=== PATIENT | male | born 1975 | race Caucasian/White ===

== ENCOUNTER → 2019-02-25 | Day surgery (SDC) | payer OTHER ==
[2019-02-21 11:33] LABS: INR 0.95; PROTHROMBIN TIME 13.2 seconds (11.9-14.5)
[2019-02-21 11:34] LABS: PARTIAL THROMBOPLASTIN TIME 39.8 seconds (23.8-35.5)
[~2019-02-25] MED LIST: ADDERALL 20 MG20 MG PO; BUPIVACAINE 0.25% 30ML SDV INJ ONE; CEFAZOLIN SOD 1 GM/NS 50ML 100 ML IV ONE; DEXAMETHASONE SOD PHOS INJ 4 MG/ML VIAL ONE; FENTANYL CITRATE/PF 100MCG/2 ML INJ ONE; GLYCOPYRROLATE INJ 1MG/ 5 ML SYR ONE; HYDROMORPHONE 2MG/ML 2 MG/ML ML ONE; LIDOCAINE HCL 2% LOCAL INJ 5 ML SDV VIAL INJ ONE; MAGNESIUM PO; MIDAZOLAM HCL 2 MG/2 ML VIAL ONE; NEOSTIGMINE 5 MG/5ML SYR ONE; NEXIUM40 MG PO; ONDANSETRON HCL INJ 2MG/ML 2ML 2 MG/ML VIAL ONE; PROPOFOL IV EMULSION 10 MG/ML 20 ML VIAL ONE; REVATIO20 MG PO; ROCURONIUM BROMIDE 10 MG/ML 5ML VIAL ONE; SERTRALINE HCL100 MG PO; SEVOFLURANE INHAL SOLN 250 ML PEN BTL ONE; SODIUM CHLORIDE 0.9% INJ 10 ML VIAL ONE; TRAMADOL HCL 50 MG TAB ONE; TRAZODONE HCL50 MG PO; VYVANSE70 MG PO
--- OUTSIDE RECORDS SUMMARY | 2019-02-25 06:54 | XMS REPORT ---
Author Author [facility] Address Unknown Phone Unavailable Care Team Providers Care Lead Warehouse Associate Name Role Phone Unavailable Unavailable Problems This patient has no known problems. Allergies, Adverse Reactions, Alerts This patient has no known allergies or adverse reactions. Medications This patient has no known medications.
[2019-02-25 11:30] VITALS: BP 115/77
--- NOTE | 2019-02-25 16:55 | Operative Report ---
DATE OF PROCEDURE: 02/25/2019 SURGEON: Danielito Valdez MD PREOPERATIVE DIAGNOSES: 1. Elevated liver function tests. 2. Chronic cholecystitis. 3. History of multiple biliary gallbladder attacks. POSTOPERATIVE DIAGNOSES: 1. Elevated liver function tests. 2. Chronic cholecystitis. 3. History of multiple biliary gallbladder attacks. PREOPERATIVE INDICATION: 1. Treat disease, complications related to biliary disease. 2. Histologic confirmation of liver disease needed. PROCEDURES: 1. Laparoscopic liver biopsy (CPT 69104). 2. Laparoscopic cholecystectomy (CPT 34399-87). 3. Application of human connective tissue allograft to augment damaged tissues (CPT 23563, product code [id number]). ANESTHESIA: General. QUALITY CONTROL SUPERVISOR: Alberto See, certified surgical tech/first assistant (needed due to complexity of case). FLUIDS: 800 mL crystalloid. ESTIMATED BLOOD LOSS: 40 mL. DRAINS: None. COMPLICATIONS: None. SPECIMENS: 1. Wedge biopsy of liver, right lobe. 2. Gallbladder grafts, human connective tissue allograft injected subcutaneously. FINDINGS: 1. Gallbladder wall thickening with pericholecystic inflammation and adhesions. 2. Friable liver. PROCEDURE IN DETAIL: The patient was brought to the operating room and was intubated under general endotracheal anesthesia. He was sterilely prepped and draped in the usual fashion. A preprocedure pause was performed identifying the patient, use of perioperative antibiotics, intended procedure, and staff surgeon. Access was gained to the peritoneal cavity via a 5 mm left subcostal incision using a Veress needle. The abdomen was insufflated and three additional trocars were placed in standard positions. The gallbladder was grasped at the fundus and retracted cephalad to the right of liver. There were multiple adhesions from the omentum to the gallbladder which were carefully lysed. The liver was very friable. The gallbladder was thick walled and inflamed. I then dissected out the cystic duct and cystic artery and clipped them twice and twice on the stay side, once on the specimen side and divided with scissors. The gallbladder was then excised off the gallbladder fossa using the L-hook cautery. I then did a wedge biopsy of the right lobe of the liver using the Harmonic Scalpel, getting a good sample. I then removed the specimens, both the liver biopsy and the gallbladder through the periumbilical port site using an EndoCatch bag. The port site was closed with 0-Vicryl suture using a Esvin Milligan technique. I then verified hemostasis, desufflated the abdomen, and removed the trocars. We then closed incision sites with 4-0 Monocryl suture in a subcuticular fashion. Dermabond dressings were applied. I did use 2 mL of Natty biologic human connective tissue allograft to augment damaged tissue growth over the incision sites. 0.25% bupivacaine was used both to the preperitoneal incision sites. The patient tolerated the procedure well. Type of wound was type 2, clean and contaminated. Danielito Valdez MD Ashley/CBL /[id number]
== END | disposition home or self-care (01) ==
LOC: OR 06:52
PROVIDERS: ATTEND Surgery
DX: F32.9 Major depressive disorder, single episode, unspecified (principal); K80.10 Calculus of gallbladder with chronic cholecystitis without obstruction; F17.210 Nicotine dependence, cigarettes, uncomplicated; K21.9 Gastro-esophageal reflux disease without esophagitis; K76.0 Fatty (change of) liver, not elsewhere classified; G25.81 Restless legs syndrome; J30.2 Other seasonal allergic rhinitis; Z01.810 Encounter for preprocedural cardiovascular examination; Z88.6 Allergy status to analgesic agent; Z88.5 Allergy status to narcotic agent; K82.8 Other specified diseases of gallbladder; B17.9 Acute viral hepatitis, unspecified; E66.01 Morbid (severe) obesity due to excess calories; Z68.41 Body mass index [BMI] 40.0-44.9, adult
CPT/HCPCS: 36415; 47379; 47562; 85610; 85730; 88304; 88307; 88313; 93005; J0690; J1100; J1170; J2001; J2250; J2405; J2704; J3010; J3490; Q4100